=== PATIENT | female | born 1945 | race Caucasian/White ===

== ENCOUNTER 2020-10-23 09:30 | Inpatient (IN) | payer OTHER ==
[~2020-10-23] VITALS: Ht 162.6 cm; Wt 56.7 kg
[2020-10-23] MEDS ORDERED: MULTIPLE VITAM1 EACH PO (13:17)
[2020-10-23] MEDS ORDERED: CARTIA XT120 MG PO (13:17)
[2020-10-23] MEDS ORDERED: TAMBOCOR PO (13:18)
[2020-10-23] MEDS ORDERED: DAFLONEX PO (13:18)
[2020-10-23] MEDS ORDERED: SIMVAST PO (13:19)
[2020-10-23] MEDS ORDERED: [UNRECOGNIZED DRUG - OTHER] (13:19)
[2020-10-23] MEDS ORDERED: JANTOVEN3 MG PO (13:20)
[2020-10-23] MEDS ORDERED: CLONAZEPAM0.5 MG PO (13:20)
[2020-11-13] MEDS ORDERED: SIMVASTATIN40 MG (09:23)
[2020-11-13] MEDS ORDERED: FLECAINIDE ACE100 MG (09:23)
[2020-11-13] MEDS ORDERED: DAFLONEX-XL 11300 MG (09:25)
[2020-11-13] MEDS ORDERED: LEVO-T25 MCG (09:28)
[2020-11-13] MEDS ORDERED: VITAMIN D3250 MC1 (09:29)
[2020-11-13] MEDS ORDERED: CITRACAL + D M1 EACH (09:29)
[2020-11-16] MEDS ORDERED: JANTOVEN3 MG PO (08:13)
[2020-11-16] MEDS ORDERED: PERCOCET 5-3251 EACH PO (08:13)
[2020-11-16] MEDS ORDERED: DUI500 PO (08:13)
== END 2020-11-16 15:04 | DRG 470 ==
LOC: SURH 10-30 06:45 → O/R 11-13 05:30 → SURH 11-13 09:30
PROVIDERS: ADMIT Orthopaedic Surgery; ATTEND Orthopaedic Surgery
PROC: 0SRC0J9 Replacement of Right Knee Joint with Synthetic Substitute, Cemented, Open Approach (ICD-10-PCS; principal; 2020-11-13 17:30)
DX: M17.11 Unilateral primary osteoarthritis, right knee (principal); D62 Acute posthemorrhagic anemia; M80.00XA Age-related osteoporosis with current pathological fracture, unspecified site, initial encounter for fracture; M22.11 Recurrent subluxation of patella, right knee; I10 Essential (primary) hypertension; I49.9 Cardiac arrhythmia, unspecified